=== PATIENT | male | born 1940 | race Caucasian/White ===

== ENCOUNTER → 2018-11-19 09:00 | Outpatient (POV) | payer MEDICARE, SELFPAY | PROVIDERS: Visit Provider Nurse Practitioner Family | DX: Z00.00 Encounter for general adult medical examination without abnormal findings (principal) ==

== ENCOUNTER → 2018-11-20 06:57 | Outpatient (CLI) | payer MEDICARE, SELFPAY ==
[2018-11-20 07:00] LABS: Adenovirus F 40/41, stool Not Detected (NotDetected); Astrovirus Not Detected (NotDetected); Campylobacter Not Detected (NotDetected); Clostridium Difficile A/B, PCR Not Detected (NotDetected); Cryptosporidium Not Detected (NotDetected); Cyclospora Cayetanesis Not Detected (NotDetected); Entamoeba histolytica Not Detected (NotDetected); Enteroaggregative E coli Not Detected (NotDetected); Enteropathogenic E coli Not Detected (NotDetected); Enterotoxigenic E coli Not Detected (NotDetected); Giardia lamblia Not Detected (NotDetected); Norovirus Not Detected (NotDetected); Plesimonas Shigalloides, PCR Not Detected (NotDetected); Rotavirus A Not Detected (NotDetected); Salmonella, PCR Not Detected (NotDetected); Sapovirus Not Detected (NotDetected); Shiga-like toxin E coli Not Detected (NotDetected); Shigella Enterovasive E coli Not Detected (NotDetected); Vibrio Cholerae Not Detected (NotDetected); Vibrio, PCR Not Detected (NotDetected); Yersinia Entercolitica, PCR Not Detected (NotDetected)
== END ==
LOC: LAB 06:58
PROVIDERS: Visit Provider Nurse Practitioner Family
DX: R19.4 Change in bowel habit (principal); R63.4 Abnormal weight loss; K92.1 Melena
CPT/HCPCS: 87506

== ENCOUNTER 2018-11-30 08:22 | Observation (INO) ==
[2018-11-30 08:41] LABS: Basophils # 0.1 K/mm3 (0-0.2); Basophils % 0.7 % (0.1-2.0); Eosinophils # 0.2 K/mm3 (0.0-0.4); Eosinophils % 2.5 % (0.1-12.0); Hematocrit 39.6 % (42.0-52.0); Hemoglobin 12.4 g/dL (14.1-18.0); Lymphocytes # 1.4 K/mm3 (0.7-4.5); Mean Corpuscular HGB Conc 31.4 g/dL (31.8-35.4); Mean Corpuscular Volume 95.8 fl (80-94); Mean Platelet Volume 7.8 fl (7.4-10.4); Monocytes # 0.5 K/mm3 (0.1-1.0); Monocytes % 5.1 % (1.7-9.3); Neutrophils # 6.8 K/mm3 (1.8-7.8); Neutrophils % 75.7 % (37.0-80.0); Platelet Count 234 K/mm3 (142-424); Red Blood Count 4.14 M/mm3 (4.60-6.20); Red Cell Distribution Width 13.3 % (11.5-17.5)
[2018-11-30 08:51] LABS: Anion Gap 16.5 mEq/L (5-15); Blood Urea Nitrogen 17 mg/dL (7-18); Calcium 9.7 mg/dL (8.5-10.1); Carbon Dioxide 23 mmol/L (21.0-32.0); Chloride 101 mmol/L (98-107); Glucose 86 mg/dL (74-106); Sodium 136 mmol/L (136-145)
--- NOTE | 2018-11-30 09:18 | Emergency Department Note ---
ED Disposition Clinical Impression: Syncope and collapse Disposition: Admitted as Observation Condition on Discharge: Good - Critical Care Critical Care Time: No Attestation: On 11/30/18, the high probability of a clinically significant, sudden or life threatening deterioration of the following system(s) required my full and direct attention, intervention and personal management. The time I documented below is in addition to time spent performing reported procedures but includes the following listed in this critical care notation. Medical Decision Making - Surendra Inquiry Pt receiving controlled substance: No Vital Signs: 11/30/18 08:23 11/30/18 08:53 11/30/18 09:23 Temperature 97.7 F Temperature Source Oral Pulse Rate [Left Radial] 52 L 56 L 50 L Respiratory Rate 20 Blood Pressure [Right Arm] 142/83 H 148/67 H 149/73 H Blood Pressure Mean [Right Arm] 102 94 98 Blood Pressure Source [Right Arm] Automatic Cuff Blood Pressure Position [Right Arm] Sitting 02 Sat by Pulse Oximetry 100 100 100 Oxygen Delivery Method Nasal Cannula Oxygen Flow Rate (LPM) 2 11/30/18 09:50 11/30/18 10:30 11/30/18 11:00 Temperature Temperature Source Pulse Rate [Left Radial] 49 L 51 L 47 L Respiratory Rate Blood Pressure [Right Arm] 149/73 H 160/98 H 147/75 H Blood Pressure Mean [Right Arm] 98 118 99 Blood Pressure Source [Right Arm] Blood Pressure Position [Right Arm] 02 Sat by Pulse Oximetry 100 100 100 Oxygen Delivery Method Oxygen Flow Rate (LPM) - Lab Data Lab Results 11/30/18 08:24: WBC 9.0, RBC 4.14 L, Hgb 12.4 L, Hct 39.6 L, MCV 95.8 H, MCH 30.0, MCHC 31.4 L, RDW 13.3, Plt Count 234, MPV 7.8, Neut % (Auto) 75.7, Lymph % (Auto) 16.0, [place] % (Auto) 5.1, Eos % (Auto) 2.5, Baso % (Auto) 0.7, Neut # (Auto) 6.8, Lymph # (Auto) 1.4, [place] # (Auto) 0.5, Eos # (Auto) 0.2, Baso # (Auto) 0.1 11/30/18 08:24: Sodium 136, Potassium 4.5, Chloride 101, Carbon Dioxide 23, Anion Gap 16.5 H, BUN 17, Creatinine 1.29, Estimated Creat Clear 38, Estimated GFR 54 L, Est GFR ( Amer) 65, Glucose 86, Calcium 9.7, Troponin I < 0.02 11/30/18 08:24: D-Dimer 2120 H* 11/30/18 10:25: Urine Color Yellow, Urine Appearance Clear, Urine pH 5.5, Ur Specific [place] 1.020, Urine Protein Negative, Urine Glucose (UA) Negative, Urine Ketones Negative, Urine Blood Negative, Urine Nitrate Negative, Urine Bilirubin Negative, Urine Urobilinogen 0.2, Ur Leukocyte Esterase Negative, Urine RBC Occasional, Urine WBC 10-20, Ur Squamous Epith Cells Occasional, Urine Bacteria Trace Result diagrams: 11/30/18 08:24 11/30/18 08:24 Orders (Tests/Meds): ED MEDICATIONS Generic Name Dose Route Start Last Admin Trade Name Freq PRN Reason Stop Dose Admin Levofloxacin/Dextrose 500 mg in 100 mls @ 100 mls/hr 11/30/18 11:30 11/30/18 11:21 Levaquin 500mg/100ml Premix IV 12/14/18 11:29 100 mls/hr Q24H VANESSA Administration Protocol ORDERS Category Date Time Status Urine Culture Stat Micro 11/30/18 10:25 Received VQ Scan [NM pul vent and perfuse] Stat Nuc Med 11/30/18 10:56 Ordered - Radiology Data #1 Image(s): Chest Image Reviewed: Yes I have reviewed radiologist's interpretation Preliminary Findings: Normal/NAD - CT Data CT Scan: Head, Chest (CTA) Time Received: 09:[address] Reviewed: Yes: I have viewed the radiologist's interpretation Findings Narrative: Head: IMPRESSION: No acute intracranial process. Moderate generalized cortical atrophy. White matter findings are nonspecific although likely related to chronic microvascular ischemic change. 2.0 cm nasopharyngeal soft tissue density. The density is equal to the muscles and although nonspecific with suggest ENT consultation for direct visualization since this could be a polyp. Other consideration would be pedunculated adenopathy. Dictated By: Boston Escobar MD Signed By: <Electronically signed by Boston Escobar MD in OV> 11/30/18 0972 - ECG Data Tracing #1 EKG interpreted by Camilo Laughlin MD: Rhythm: sinus Rate: 61 [place]: normal Ectopy: Premature atrial contractions Conduction: normal ST Segment Changes: none T Wave Changes: none Q Waves: none No evidence of acute ischemia or injury - Physician Consults Physician Consulted: Eber Time: 11:15 Reason -: Admission Comment/Response: Agrees to admit the patient to the hospital. We discussed the patient's clinical information, including history, exam, laboratory and radiology results and ED course. Per hospital procedure, I will write temporary bridge inpatient orders on the patient. Specific orders requested by the admitting physician: Telemetry, VQ scan, echo. IV fluids. Rocephin for UTI (patient is allergic to penicillin which she says causes rash and shortness of breath, so I will change this to Levaquin). Repeat troponin in 6 hours x 1. No lovenox. General Adult HPI - General Chief complaint: Fall Stated complaint: fall Time Seen by Provider: 11/30/18 09:16 Mode of Arrival: EMS Limitations: No Limitations Description of Symptoms (Recalled from ER Triage Doc. by RN): to ed per squad with c/o fall pt found by neighbor in yard pt unsure how he fell. pt dx with colon ca and is suppose to have surgery monday pt c/o generalized pain and weakness x several days, pt poor historian. c/o rectal bleeding "for a while". cpta none - History of Present Illness HPI narrative: Brought in by ambulance for an apparent syncopal episode. Patient states that he got up this morning went and got coffee [employer] and that is the last thing he remembers. Apparently found laying in his yard. Says he feels "crappy". He has been short of breath for 3 or 4 days. Slight sternal chest pain. Just recently diagnosed with rectal cancer. Had a colonoscopy by Dr. Stanley 4 days ago. He is going to be seen at the [facility] December 04. He has had diarrhea, rectal bleeding, weight loss. Poor appetite. He is from [place], he has been living here for about a month, he does not yet have a physician here for primary care. - Related Data Home Medications Medication Instructions Recorded Confirmed Amlodipine Besylate [Amlodipine 2.5 mg PO DAILY 10/27/18 11/30/18 5mg tab] Aspirin [Aspir 81] 81 mg PO DAILY 10/27/18 11/30/18 Cilostazol [Pletal 100mg tablet] 100 mg PO BID 10/27/18 11/30/18 Lisinopril [Lisinopril 30mg Tablet] 30 mg PO DAILY 10/27/18 11/30/18 Polyethylene Glycol 3350 [Miralax 17 gm PO DAILYP PRN 10/27/18 11/30/18 17gm Packet] Pregabalin [Lyrica] 75 mg PO BID 10/27/18 11/30/18 Ropinirole HCl 0.5 mg PO DAILY 10/27/18 11/30/18 Simvastatin 40 mg PO DAILY 10/27/18 11/30/18 Allergies Allergy/AdvReac Type Severity Reaction Status Date / Time morphine [MORPHINE] Allergy Unknown UNKNOWN Verified 10/27/18 20:42 Penicillins [PENICILLINS] Allergy Unknown UNKNOWN Verified 10/27/18 20:42 IV DYE Allergy Severe Difficulty Uncoded 10/27/18 20:42 Breathing [facility] History - Hepatitis A Screen Drug use history?: No High risk sexual behaviors?: No History of sexually transmitted infection?: No Currently employed?: No Childcare worker?: No Do you have indoor plumbing?: Yes Do you have electricity?: Yes Attestation statement:: This patient has been screened for Hepatitis A risk factors. I have reviewed the patient's past medical history: Yes Medical History: Reports:: Hyperlipidemia, Hypertension Denies:: Diabetes Mellitus Type 1, Diabetes Mellitus Type 2, Internal Pacemaker, Lung Disease, Seizures Other Medical History: Reports: Other (pvd) Other Surgeries: Yes: Other (right hip, left leg sx). No: Pacemaker - Social History Smoking Status: Current every day smoker Tobacco Type: cigarettes # Packs/Day (cigarettes): 0 Alcohol Intake: never Occupational Status: retired Housing: house - Psychiatric History Expresses thoughts of harming self/others: None Suicide Plan Description: No Plan Family Hx:: No significant family history ROS Obtained: Yes All systems reviewed & no additional complaints - Constitutional Constitutional: Reports poor appetite, Reports weight loss - Cardiovascular Cardiovascular: Reports chest pain - Respiratory Respiratory: Yes dyspnea, No coughing up blood - Gastrointestinal Gastrointestingal: Reports: diarrhea, incontinent of stools, bright red blood in stools - Neurologic Neurologic: Denies headache(s) Physical Exam - General General appearance: alert, in no apparent distress - Head Head exam: atraumatic, normocephalic - Eye Eye exam: Present: normal appearance, PERRL, EOMI - ENT ENT exam: Present: mucous membranes moist - Neck Neck exam: Present: normal inspection, trachea midline - Chest Chest inspection: Present: normal inspection, symmetric chest wall rise - Respiratory Respiratory exam: Present: normal lung sounds bilaterally. Absent: respiratory distress - Cardiovascular Cardiovascular exam: Present: regular rate, normal rhythm, normal heart sounds - Abdominal Exam Abdominal exam: Present: soft, tenderness, normal bowel sounds. Absent: distention, guarding, rebound, rigidity Abdominal tenderness: Present: diffuse - Extremities Exam Extremities exam: Present: normal inspection. Absent: calf tenderness - Neurological Exam Neurological exam: Present: alert, oriented X3, CN II-XII intact. Absent: motor sensory deficit - Psychiatric Psychiatric exam: Present: normal affect, normal mood - Skin Skin exam: Present: warm, dry
[2018-11-30 10:30] LABS: Microscopic, Urine URINE MICROSCOPIC (MICROSCOPIC)
[2018-11-30 10:47] LABS: Appearance,Urine CLEAR (Clear); Bilirubin,Urine Negative (Negative); Blood, Urine Negative (Negative); Color,Urine YELLOW (Yellow); Glucose,Urine (UA) Negative (Negative); Ketones,Urine Negative (Negative); Leukocyte Esterase,Urine Negative (Negative); PH,Urine 5.5 (5.0-8.5); Protein,Urine Negative (Negative); Urobilinogen,Urine 0.2 EU/dl (0.2)
[2018-11-30 11:06] LABS: RBC,Urine Occasional #/hpf (0-3)
[2018-11-30 11:07] LABS: Bacteria,Urine Trace /lpf; Squamous Epithelial Cell,Urine Occasional #/hpf (0-5)
--- NOTE | 2018-11-30 14:09 | Cardiology Report ---
PROCEDURE: 2-D M-mode and color Doppler study INDICATIONS FOR THE TEST: Chest pain + COPD Heart Murmur Tobacco Smoking+ Palpitations Fatigue Syncope+ Edema Hypertension+Diabetes Mellitus Rheumatic Fever SOB+WYNN Obesity Hyperlipidemia+ Family History HD Additional History RECTAL CA, STENTS TDS-UNABLE TO LAY ON LEFT SIDE, OVERLAYING LUNG PATIENT INFORMATION HEIGHT: 63 WEIGHT:130 GENDER: Male B/P:149/73 2-D/M-MODE INTERPRETATION: 2-D MEASUREMENTS OBSERVED VALUES IN CMS Right Ventricular Dimension (RVDd) 2.9 Interventricular Septum (Thickness)(IVsd) 1.2 Left Ventricular Internal Dimensions(LVIDd) 5.1 Left Ventricular Posterior Wall (Thickness)(LVPWd) 1.1 Aortic Root 2.9 Aortic Cusp Separation 1.1 Left Atrial Dimensions (LAD) 3.8 2D 1. Technically difficult study because of the patient's factor and poor acoustic windows 2. Left atrium is mildly enlarged, left ventricle is normal size, mild concentric left ventricular hypertrophy, visually estimated ejection fraction 50% with no regional wall motion abnormality. 3. The right atrium and right ventricle are mildly enlarged with normal contractility. 4. The aortic valve is thickened and calcified without restriction the leaflet mobility. 5. The mitral and tricuspid valve leaflets are minimally thickened. 6. The pulmonic valve is poorly visualized. 7. No significant pericardial effusion noted. DOPPLER INTERROGATION: Doppler interrogation of the aortic, mitral and tricuspid valvular presence of mild mitral and tricuspid regurgitation, tricuspid regurgitation jet velocity is inadequate for calculation of the right ventricular systolic pressure, grade 1 diastolic dysfunction seen with tissue Doppler evidence of raised left atrial pressure. Inferior vena cava is normal size with normal is normal inspiratory collapse. CONCLUSION: 1. Biatrial enlargement, normal left ventricular size, mild concentric left ventricular hypertrophy, visually estimated ejection fraction 50% with no regional wall motion abnormality, grade 1 diastolic dysfunction seen with tissue Doppler evidence of raised left atrial pressure. 2. Mildly enlarged right ventricle with normal contractility. 3. Mild mitral and tricuspid regurgitation. 4. No significant pericardial effusion noted. Inferior vena cava is normal size with normal inspiratory collapse.
--- NOTE | 2018-11-30 15:19 | Pharmacy Consult Notes ---
[facility] Pharmacy VTE Monitoring - Patient Demographics Admission date: 11/30/18 Report Date: 11/30/18 Time: 15:19 Allergies/Adverse Reactions: Patient Allergies morphine [MORPHINE] Allergy (Unknown, Verified 10/27/18 20:42) UNKNOWN Penicillins [PENICILLINS] Allergy (Unknown, Verified 10/27/18 20:42) UNKNOWN IV DYE Allergy (Severe, Uncoded 10/27/18 20:42) Difficulty Breathing Height: 1.7 m Weight: 55.026 kg Patient Problems: Current Active Problems (Updated 11/30/18 @ 11:17 by Camilo Laughlin MD) Syncope and collapse (Acute) - VTE Risk Labs: VTE Related Lab Results Hgb 12.4 g/dL (14.1-18.0) L 11/30/18 08:24 Hct 39.6 % (42.0-52.0) L 11/30/18 08:24 Plt Count 234 K/mm3 (142-424) 11/30/18 08:24 BUN 17 mg/dL (7-18) 11/30/18 08:24 Creatinine 1.29 mg/dL (0.70-1.30) 11/30/18 08:24 Estimated Creat Clear 38 mL/min (50-200) 11/30/18 08:24 VTE Score: 1 - Prophylaxis VTE Prophylaxis Ordered?: Yes Types of VTE Prophylaxis: TEDS Knee High Location of Applied Device: Bilateral Lower Extremeties
--- NOTE | 2018-11-30 16:47 | History & Physical Report ---
*Admission Date: 11/30/18 *Chief complaint: Syncope *History of present illness: 78-year-old male with recently diagnosed rectal carcinoma presented to the emergency department after syncopal episode at home. Patient is able to tell me that he was walking outside of his home and he lost consciousness. A neighbor attended to him and was able to revive him. Patient notes some shortness of breath as well as diaphoresis and some chest discomfort prior to onset of his syncope. The symptoms have since resolved. He was brought to the emergency department where he underwent evaluation. There was concern because of an elevated d-dimer that patient may have a pulmonary embolism. Due to an allergy to contrast dye decision was made to proceed with VQ scan which could not be performed until this afternoon. Patient was admitted for V/Q scanning and observation on telemetry. Since admission patient has been weaned to room air and is maintaining sats in the high 90s to 100%. He was unable to complete the VQ scan due to inability to inhale the aerosol for the required amount of time. At this time patient denies shortness of breath or chest pain or palpitations. Troponin has been negative x2 and there were no EKG changes other than sinus bradycardia. Patient denies any prior history of syncope. In regards to his recently diagnosed rectal carcinoma he is to be seen at the [facility] center on December 04 [facility] History I have reviewed the patient's past medical history: Yes Medical History: Reports:: Cancer (colon cancer), Hyperlipidemia, Hypertension Denies:: Diabetes Mellitus Type 1, Diabetes Mellitus Type 2, Internal Pacemaker, Lung Disease, MRSA, Seizures *Have you ever received a pneumonia vaccine?: Yes *Have you received a flu vaccine this season?: Yes Other Medical History: Reports: Other (pvd) Other Surgeries: Yes: Colonoscopy, EGD, Other (right hip, left leg sx). No: Pacemaker Amputation: No Fractures: No - *Social History Educational Level: Completed High School Smoking Status: Current every day smoker Tobacco Type: cigarettes # Packs/Day (cigarettes): 1 Alcohol Intake: never *Occupational Status:: retired Housing: apartment Household Members: family *Travel in the last 8 weeks: None - Psychiatric History Expresses thoughts of harming self/others: None Suicide Plan Description: No Plan Family Hx:: No significant family history Review of Systems - Review of Systems Review of systems:: pertinent systems reviewed and negative unless documented below - Constitutional Reports anorexia, Reports weakness, Reports weight loss, Denies body ache(s), Denies chills, Denies headache(s) - *Cardiovascular Reports chest pain - *Gastrointestinal Reports loose stools, Reports nausea - *Neurologic Denies headache(s) Meds Home Medications Medication Instructions Recorded Confirmed Type Amlodipine Besylate [Amlodipine 2.5 mg PO DAILY 10/27/18 11/30/18 History 5mg tab] Aspirin [Aspir 81] 81 mg PO DAILY 10/27/18 11/30/18 History Cilostazol [Pletal 100mg tablet] 100 mg PO BID 10/27/18 11/30/18 History Lisinopril [Lisinopril 30mg Tablet] 30 mg PO DAILY 10/27/18 11/30/18 History Polyethylene Glycol 3350 [Miralax 17 gm PO DAILYP PRN 10/27/18 11/30/18 History 17gm Packet] Pregabalin [Lyrica] 75 mg PO BID 10/27/18 11/30/18 History Ropinirole HCl 0.5 mg PO HS 10/27/18 11/30/18 History Simvastatin 20 mg PO HS 10/27/18 11/30/18 History Allergies Allergy/AdvReac Type Severity Reaction Status Date / Time morphine [MORPHINE] Allergy Unknown UNKNOWN Verified 10/27/18 20:42 Penicillins [PENICILLINS] Allergy Unknown UNKNOWN Verified 10/27/18 20:42 IV DYE Allergy Severe Difficulty Uncoded 10/27/18 20:42 Breathing Exam Vital signs and Labs for Last 24 Hours: Temp Pulse Resp BP Pulse Ox 98.1 F 55 L 18 137/70 100 11/30/18 16:11 11/30/18 16:11 11/30/18 16:11 11/30/18 16:11 11/30/18 16:11 Laboratory Results - last 24 hr 11/30/18 08:24: WBC 9.0, RBC 4.14 L, Hgb 12.4 L, Hct 39.6 L, MCV 95.8 H, MCH 30.0, MCHC 31.4 L, RDW 13.3, Plt Count 234, MPV 7.8, Neut % (Auto) 75.7, Lymph % (Auto) 16.0, [place] % (Auto) 5.1, Eos % (Auto) 2.5, Baso % (Auto) 0.7, Neut # (Auto) 6.8, Lymph # (Auto) 1.4, [place] # (Auto) 0.5, Eos # (Auto) 0.2, Baso # (Auto) 0.1 11/30/18 08:24: Sodium 136, Potassium 4.5, Chloride 101, Carbon Dioxide 23, Anion Gap 16.5 H, BUN 17, Creatinine 1.29, Estimated Creat Clear 38, Estimated GFR 54 L, Est GFR ( Amer) 65, Glucose 86, Calcium 9.7, Troponin I < 0.02 11/30/18 08:24: D-Dimer 2120 H* 11/30/18 10:25: Urine Color Yellow, Urine Appearance Clear, Urine pH 5.5, Ur Specific [place] 1.020, Urine Protein Negative, Urine Glucose (UA) Negative, Urine Ketones Negative, Urine Blood Negative, Urine Nitrate Negative, Urine Bilirubin Negative, Urine Urobilinogen 0.2, Ur Leukocyte Esterase Negative, Urine RBC Occasional, Urine WBC 10-20, Ur Squamous Epith Cells Occasional, Urine Bacteria Trace 11/30/18 13:33: Stl Aeromonas (PCR) Not detected, Stl C. cayetanensis PCR Not detected, Stool Rotavirus (PCR) Not detected, Stl Adenov F 40/41 PCR Not detected, Stool Astrovirus (PCR) Not detected, Stool Campylobacter PCR Not detected, Stl C.difficile Tox PCR Not detected, Stool Cryptosporidium PCR Not detected, Stl E.coli Shiga Tox PCR Not detected, Stool E coli O157 PCR Not detected, Stl Enterotoxigenic E PCR Not detected, Stool EPEC (PCR) Not detected, Stool EAEC (PCR) Not detected, Stl E. histolytica PCR Not detected, Stool Giardia Lamblia PCR Not detected, Stool Salmonella PCR Not detected, Stool Sapovirus (PCR) Not detected, Stl P. shigelloides PCR Not detected, Stl Shigella/EIEC PCR Not detected, St Y.enterocolitica PCR Not detected, Stool Vibrio (PCR) Not detected, Stl Vibrio cholerae PCR Not detected, Stl Norovirus GI/GII PCR Not detected 11/30/18 14:30: Troponin I < 0.02 I & O for Last 24 hours: Intake & Output 11/28/18 11/29/18 11/30/18 12/01/18 11:59 11:59 11:59 11:59 Weight 130 lb 121 lb 4.985 oz Narrative: Elderly male in no acute distress. ENT exam reveals normal external ears, moist oropharynx. Neck is without carotid bruits or lymphadenopathy. Lungs are clear to auscultation. Heart has a regular rate and rhythm. Abdomen is thin and soft. Patient moves all extremities. Assessment and Plan (1) Rectal carcinoma Current visit: Yes Status: Acute Category: Medical Code(s): C20 - Malignant neoplasm of rectum (2) Syncope and collapse Current visit: Yes Status: Acute Category: Medical Code(s): R55 - Syncope and collapse - Assessment and plan all Dx Assessment and Plan for all problems:: 1. Patient is been admitted for monitoring. Despite his elevated d-dimer at present he is asymptomatic from any potential clot and I have low suspicion of pulmonary embolism. Telemetry monitoring will continue to observe for arrhythm ia. Home medications have been reordered. MiraLAX will be held. Patient is unsure of why he takes Pletal and denies any history of vascular disease. I am going to discontinue this medicine
--- NOTE | 2018-12-01 07:39 | Discharge Summary ---
General - General Admission date:: 11/30/18 Discharge date: 12/01/18 HPI HPI: 78-year-old male with recently diagnosed rectal carcinoma presented to the emergency department after syncopal episode at home. Patient is able to tell me that he was walking outside of his home and he lost consciousness. A neighbor attended to him and was able to revive him. Patient notes some shortness of breath as well as diaphoresis and some chest discomfort prior to onset of his syncope. The symptoms have since resolved. He was brought to the emergency department where he underwent evaluation. There was concern because of an elevated d-dimer that patient may have a pulmonary embolism. Due to an allergy to contrast dye decision was made to proceed with VQ scan which could not be performed until this afternoon. Patient was admitted for V/Q scanning and observation on telemetry. Since admission patient has been weaned to room air and is maintaining sats in the high 90s to 100%. He was unable to complete the VQ scan due to inability to inhale the aerosol for the required amount of time. At this time patient denies shortness of breath or chest pain or palpitations. Troponin has been negative x2 and there were no EKG changes other than sinus bradycardia. Patient denies any prior history of syncope. In regards to his recently diagnosed rectal carcinoma he is to be seen at the [facility] on December 04 Hospital Course Hospital Course: Patient was admitted for observation. He was unable to complete V/Q scanning. Patient was weaned from supplemental oxygen and remained with O2 sats on room air at 100%. After admission he denied any further symptoms of chest pain or shortness of breath. Echocardiogram revealed no significant valvular disease and normal LV function. He was observed overnight on telemetry. Patient did have sinus bradycardia and while asleep bradycardia down to the 40s. Otherwise heart rate was in the mid 50s to 60s. Patient had no further syncope. On the morning of December 01 he was discharged home. Patient will tentatively plan to follow-up in my office on December 07 at 1030. He is scheduled to be seen at the [facility] on December 04 regarding his rectal carcinoma. Ongoing malignancy is likely the cause of his elevated d-dimer. Patient's urinalysis was suggestive of UTI. At the time of discharge culture was still pending. Patient will be placed on a short course of antibiotic and can follow-up on culture as an outpatient Objective Vital signs: Temp Pulse Resp BP Pulse Ox 97.4 F L 55 L 18 145/64 H 100 12/01/18 04:00 12/01/18 04:00 12/01/18 04:00 12/01/18 04:00 12/01/18 04:00 no acute distress - *Routine Respiratory Exam Present: CTA bilaterally - *Routine Cardiovascular Exam Present: RRR, Normal S1, Normal S2 - *Routine Abdominal Exam Present: soft, normoactive bowel sounds. Absent: tenderness Results Labs on day of discharge: Labs from last 24 hours 11/30/18 11/30/18 11/30/18 14:30 13:33 10:25 WBC RBC Hgb Hct MCV MCH MCHC RDW Plt Count MPV Neut % (Auto) Lymph % (Auto) [place] % (Auto) Eos % (Auto) Baso % (Auto) Neut # (Auto) Lymph # (Auto) [place] # (Auto) Eos # (Auto) Baso # (Auto) D-Dimer Sodium Potassium Chloride Carbon Dioxide Anion Gap BUN Creatinine Estimated Creat Clear Estimated GFR Est GFR ( Amer) Glucose Calcium Troponin I < 0.02 Urine Color Yellow Urine Appearance Clear Urine pH 5.5 Ur Specific [place] 1.020 Urine Protein Negative Urine Glucose (UA) Negative Urine Ketones Negative Urine Blood Negative Urine Nitrate Negative Urine Bilirubin Negative Urine Urobilinogen 0.2 Ur Leukocyte Esterase Negative Urine RBC Occasional Urine WBC 10-20 Ur Squamous Epith Cells Occasional Urine Bacteria Trace Stl Aeromonas (PCR) Not detected Stl C. cayetanensis PCR Not detected Stool Rotavirus (PCR) Not detected Stl Adenov F 40/41 PCR Not detected Stool Astrovirus (PCR) Not detected Stool Campylobacter PCR Not detected Stl C.difficile Tox PCR Not detected Stool Cryptosporidium PCR Not detected Stl E.coli Shiga Tox PCR Not detected Stool E coli O157 PCR Not detected Stl Enterotoxigenic E PCR Not detected Stool EPEC (PCR) Not detected Stool EAEC (PCR) Not detected Stl E. histolytica PCR Not detected Stool Giardia Lamblia PCR Not detected Stool Salmonella PCR Not detected Stool Sapovirus (PCR) Not detected Stl P. shigelloides PCR Not detected Stl Shigella/EIEC PCR Not detected St Y.enterocolitica PCR Not detected Stool Vibrio (PCR) Not detected Stl Vibrio cholerae PCR Not detected Stl Norovirus GI/GII PCR Not detected 11/30/18 11/30/18 11/30/18 08:24 08:24 08:24 WBC 9.0 RBC 4.14 L Hgb 12.4 L Hct 39.6 L MCV 95.8 H MCH 30.0 MCHC 31.4 L RDW 13.3 Plt Count 234 MPV 7.8 Neut % (Auto) 75.7 Lymph % (Auto) 16.0 [place] % (Auto) 5.1 Eos % (Auto) 2.5 Baso % (Auto) 0.7 Neut # (Auto) 6.8 Lymph # (Auto) 1.4 [place] # (Auto) 0.5 Eos # (Auto) 0.2 Baso # (Auto) 0.1 D-Dimer 2120 H* Sodium 136 Potassium 4.5 Chloride 101 Carbon Dioxide 23 Anion Gap 16.5 H BUN 17 Creatinine 1.29 Estimated Creat Clear 38 Estimated GFR 54 L Est GFR ( Amer) 65 Glucose 86 Calcium 9.7 Troponin I < 0.02 Urine Color Urine Appearance Urine pH Ur Specific [place] Urine Protein Urine Glucose (UA) Urine Ketones Urine Blood Urine Nitrate Urine Bilirubin Urine Urobilinogen Ur Leukocyte Esterase Urine RBC Urine WBC Ur Squamous Epith Cells Urine Bacteria Stl Aeromonas (PCR) Stl C. cayetanensis PCR Stool Rotavirus (PCR) Stl Adenov F 40/41 PCR Stool Astrovirus (PCR) Stool Campylobacter PCR Stl C.difficile Tox PCR Stool Cryptosporidium PCR Stl E.coli Shiga Tox PCR Stool E coli O157 PCR Stl Enterotoxigenic E PCR Stool EPEC (PCR) Stool EAEC (PCR) Stl E. histolytica PCR Stool Giardia Lamblia PCR Stool Salmonella PCR Stool Sapovirus (PCR) Stl P. shigelloides PCR Stl Shigella/EIEC PCR St Y.enterocolitica PCR Stool Vibrio (PCR) Stl Vibrio cholerae PCR Stl Norovirus GI/GII PCR DS: Diagnosis - Discharge Diagnosis (1) Syncope and collapse Status: Acute (2) Rectal carcinoma Status: Acute (3) UTI (urinary tract infection) Status: Suspected Discharge Plan - Patient Discharge Instructions ACTIVITY: Continue current activity DIET: continue same diet - Follow up Plan Follow up with: Jamie Velázquez MD [Staff Physician] - 12/07/18 10:30 am Disposition: Home, Self-Usp Medications: Home Medications Medication Instructions Recorded Confirmed Type Amlodipine Besylate [Amlodipine 2.5 mg PO DAILY 10/27/18 11/30/18 History 5mg tab] Aspirin [Aspir 81] 81 mg PO DAILY 10/27/18 11/30/18 History Cilostazol [Pletal 100mg tablet] 100 mg PO BID 10/27/18 11/30/18 History Lisinopril [Lisinopril 30mg Tablet] 30 mg PO DAILY 10/27/18 11/30/18 History Polyethylene Glycol 3350 [Miralax 17 gm PO DAILYP PRN 10/27/18 11/30/18 History 17gm Packet] Pregabalin [Lyrica] 75 mg PO BID 10/27/18 11/30/18 History Ropinirole HCl 0.5 mg PO HS 10/27/18 11/30/18 History Simvastatin 20 mg PO HS 10/27/18 11/30/18 History Ciprofloxacin HCl [Cipro 250mg Tab] 250 mg PO BID #6 tab 12/01/18 Rx Prescriptions/Medication Reconciliation: New Ciprofloxacin HCl [Cipro 250mg Tab] 250 mg PO BID #6 tab Continued Pregabalin [Lyrica] 75 mg PO BID Polyethylene Glycol 3350 [Miralax 17gm Packet] 17 gm PO DAILYP PRN PRN Reason: Constipation Lisinopril [Lisinopril 30mg Tablet] 30 mg PO DAILY Aspirin [Aspir 81] 81 mg PO DAILY Amlodipine Besylate [Amlodipine 5mg tab] 2.5 mg PO DAILY Simvastatin 20 mg PO HS Ropinirole HCl 0.5 mg PO HS Discontinued Cilostazol [Pletal 100mg tablet] 100 mg PO BID
== END 2018-12-01 09:20 | disposition home or self-care (01) ==
LOC: ER 08:22 → 2ND 08:22
PROVIDERS: ADMIT Family Medicine; ATTEND Family Medicine
DX: R55 Syncope and collapse; I10 Essential (primary) hypertension; C20 Malignant neoplasm of rectum; E78.5 Hyperlipidemia, unspecified; R07.9 Chest pain, unspecified; N39.0 Urinary tract infection, site not specified; Z72.0 Tobacco use
CPT/HCPCS: 36415; 70450; 71010; 71045; 80048; 81001; 84484; 85025; 85378; 87086; 87507; 93005; 93306; 96365; 99285; A9567; G0378; J1956